=== PATIENT | female | born 1975 | race Caucasian/White ===

== ENCOUNTER → 2016-05-10 | Outpatient (CLI) | payer SELFPAY ==
[~2016-05-10] MED LIST: ALL DAY ALLERGY10 M3 PO; ALLERGY10 M2 PO; ALPRAZOLAM PO; CARAFATE1 GM PO; CIPRO PO; COLACE PO; CRESTOR5 MG PO; DEPAKOTE ER; DEPLIN15 MG; DEPLIN15 MG PO; DESYREL100 MG PO; DICLOFENAC PO; DIVALPROEX SOD500 MG PO; HYDROCODONE-APA1 T43 PO; INDERAL20 MG PO; KLONOPIN0.25 MG/TA PO; LAMICTAL PO; LAMICTAL100 MG PO; LEXAPRO; LEXAPRO PO; LORTAB 10/500 T1 TAB PO; NAPROSYN500 MG PO; NAPROXEN; NAPROXEN PO; NAPROXEN500 M1 PO; NEURONTIN600 MG PO; NORCO 7.5-3251 EACH PO; PRISTIQ PO; PROPRANOLOL; ROBAXIN 750750 MG PO; SEROQUEL; SEROQUEL XR300 M1 PO; SEROQUEL XR300 MG PO; SKELAXIN PO; TOPAMAX PO; TOPICAINE 5113 GM TP; TRAZODONE; TRAZODONE PO; VASCAZEN CAPSU1 EACH PO; VASCEPA1 GM PO; VISTARIL PO; VISTARIL50 MG PO; VITAMIN D50000 UNIT PO; VOLTAREN50 MG PO; [UNRECOGNIZED DRUG - OTHER] PR; [UNRECOGNIZED DRUG - REMARK]
== END | disposition home or self-care (01) ==
LOC: CBAR 08:54
DX: E66.01 Morbid (severe) obesity due to excess calories (principal)
CPT/HCPCS: 76000